=== PATIENT | male | born 1990 | race American Indian/Alaskan Native ===

== ENCOUNTER 2022-07-18 08:16 | Day surgery (SDC) | payer BC ==
[~2022-07-18 08:16] MED LIST: Albuterol 0.083% 2.5 MG/3 ML Neb Soln NEB PRN; HYDROmorphone 1 MG/ML Syringe IVPUSH PRN; Lactated Ringers 1,000 ML IV SCH; Metoclopramide 10 MG/2 ML SDV IVPUSH PRN; Morphine 2 MG/ML SYRINGE IVPUSH PRN; Naloxone 0.4 MG/ML SDV IVPUSH PRN; Ondansetron 4 MG/2 ML SDV IVPUSH PRN; ceFAZolin 2 GM in Sodium Chloride 0.9% 50 ML IV ONE; fentaNYL 50 MCG/ML SDV IVPUSH PRN
[2022-07-18] MEDS ORDERED: Bupivacaine 0.5% 30 ML SDV ONE (08:44)
[2022-07-18] MEDS ORDERED: Ropivacaine 0.5% 5 MG/ML 30 ML SDV ONE (08:47)
[2022-07-18] MEDS ORDERED: Bupivacaine 25%/EPINEPHrine/PF 30 ML ONE (08:47)
[2022-07-18] MEDS ORDERED: Ondansetron 4 MG/2 ML SDV ONE (08:59)
[2022-07-18] MEDS ORDERED: Dexmedetomidine 200 MCG/2 ML SDV ONE (08:59)
[2022-07-18] MEDS ORDERED: Sugammadex Sodium 200 MG/2 ML VIAL ONE (08:59)
[2022-07-18] MEDS ORDERED: Rocuronium Bromide 50 MG/5 ML Syringe ONE (08:59)
[2022-07-18] MEDS ORDERED: Water For Injection, Sterile 20 ML ONE ×2 (08:59→09:28)
[2022-07-18] MEDS ORDERED: Lidocaine 2% 5 ML SDV ONE (08:59)
[2022-07-18] MEDS ORDERED: fentaNYL 100 MCG/2 ML SDV ONE (09:00)
[2022-07-18] MEDS ORDERED: Propofol 200 MG/20 ML SDV ONE (09:00)
[2022-07-18] MEDS ORDERED: ceFAZolin 2 GM Vial ONE (09:28)
[2022-07-18] MEDS ORDERED: ePHEDrine 50 MG/ML SDV ONE (10:26)
[2022-07-18] MEDS ORDERED: Ketorolac 30 MG/ML SDV ONE (10:32)
[2022-07-18] MEDS ORDERED: Acetaminophen/HYDROcodone 325-5 MG Tab PO PRN (10:46)
[2022-07-18] MEDS ORDERED: Morphine 4 MG/ML Syringe IVPUSH PRN (10:46)
[2022-07-18] MEDS ORDERED: Lactated Ringers 1,000 ML IV SCH (11:00)
== END 2022-07-18 12:00 | disposition home or self-care (01) ==
LOC: MW.SDS 08:16
PROVIDERS: ATTEND Surgery
DX: K42.0 Umbilical hernia with obstruction, without gangrene (principal); E66.9 Obesity, unspecified; E11.65 Type 2 diabetes mellitus with hyperglycemia; F17.210 Nicotine dependence, cigarettes, uncomplicated; Z79.899 Other long term (current) drug therapy; Z98.890 Other specified postprocedural states; Z79.84 Long term (current) use of oral hypoglycemic drugs; Z68.33 Body mass index [BMI] 33.0-33.9, adult
CPT/HCPCS: 49592; 82947; J0690; J1885; J2405; J2704; J2795; J3010; J3490; J7120; 00752; 64488